=== PATIENT | female | born 1960 | race Two or more races ===

== ENCOUNTER 2020-04-01 15:08 | Outpatient (CLI) | payer OTHER | END 2020-04-01 15:12 | disposition home or self-care (01) | LOC: RAD 15:08 | PROVIDERS: ATTEND Orthopaedic Surgery | DX: M79.621 Pain in right upper arm (principal) ==

== ENCOUNTER 2023-08-04 14:50 | Outpatient (CLI) | payer OTHER | END 2023-08-04 14:53 | disposition home or self-care (01) | LOC: SONOGRAMA 14:50 | DX: M25.511 Pain in right shoulder (principal); N28.1 Cyst of kidney, acquired ==

== ENCOUNTER 2024-01-03 10:20 | Outpatient (CLI) | payer OTHER | END 2024-01-03 10:30 | disposition home or self-care (01) | LOC: SONOGRAMA 10:20 | DX: N28.1 Cyst of kidney, acquired (principal); Z02.9 Encounter for administrative examinations, unspecified ==

== ENCOUNTER 2024-01-26 09:52 | Outpatient (CLI) | payer OTHER | END 2024-01-26 09:55 | disposition home or self-care (01) | LOC: SONOGRAMA 09:52 | DX: M25.562 Pain in left knee (principal) ==

== ENCOUNTER 2024-10-09 07:28 | Outpatient (CLI) | payer OTHER | END 2024-10-09 07:31 | disposition home or self-care (01) | LOC: SONOGRAMA 07:28 | DX: R10.9 Unspecified abdominal pain (principal); Z13.6 Encounter for screening for cardiovascular disorders ==

== ENCOUNTER 2025-01-01 09:59 | Outpatient (CLI) | payer OTHER | END 2025-01-01 10:02 | disposition home or self-care (01) | LOC: SONOGRAMA 09:59 | DX: M25.461 Effusion, right knee (principal); M25.561 Pain in right knee ==